=== PATIENT | male | born 1985 | race Caucasian/White ===

== ENCOUNTER 2017-11-29 13:35 | Emergency (ER) | payer MEDICAID ==
[2017-11-29] MEDS ORDERED: ceFAZolin 1 GM Vial IM ONE (15:05)
[2017-11-29] MEDS ORDERED: traMADol 50 MG Tab ONE (15:09)
[2017-11-29] MEDS ORDERED: traMADol 50 MG Tab PO ONE (15:09)
--- NOTE | 2017-11-29 15:09 | EDM.PDOC ---
ED HPI GENERAL MEDICAL PROBLEM - General Chief Complaint: Lower Extremity Injury/Pain Stated Complaint: AMB Time Seen by Provider: 11/29/17 13:48 Source of Information: Reports: Patient History Limitations: Reports: No Limitations - History of Present Illness INITIAL COMMENTS - FREE TEXT/NARRATIVE: History of present illness: []Patient slipped on water in the shelter and fell forward landing on his right knee. His head and was knocked unconscious. He has not had any vomiting, headache, change in vision or seizures. He was brought in by ambulance awake and alert with his right knee flexed fully. Patient states he may have felt his knee pop. He states he had some numbness and tingling in his lower extremity briefly but it came right back. He denies any numbness or pain is calf or foot at this time. Review of systems: As per history of present illness and below otherwise all systems reviewed and negative. Past medical history: As per history of present illness and as reviewed below otherwise noncontributory. Surgical history: As per history of present illness and as reviewed below otherwise noncontributory. Social history: No reported history of drug or alcohol abuse. Family history: As per history of present illness and as reviewed below otherwise noncontributory. Physical exam: General: Well developed, thin and cachectic in no apparent distress HEENT: Atraumatic, no masses or normocephalic, pupils reactive, negative for conjunctival pallor or scleral icterus, mucous membranes moist, throat clear, neck supple, nontender, step-offs or deformities trachea midline. Lungs: Clear to auscultation, breath sounds equal bilaterally, chest nontender. Heart: S1S2, regular, negative for clicks, rubs, or JVD. Abdomen: Soft, nondistended, nontender. Negative for masses or hepatosplenomegaly. Negative for costovertebral tenderness. Pelvis: Stable nontender. Genitourinary: Deferred. Rectal: Deferred. Extremities: Right knee with abrasion over patella tenderness and obvious deformity of patella, negative for cords or calf pain. Neurovascular unremarkable. Dorsalis pedis is palpable patient moves toes and has sensation in his feet. Neuro: Awake, alert, oriented. Cranial nerves II through XII unremarkable. Cerebellum unremarkable. Motor and sensory unremarkable throughout. Exam nonfocal. Diagnostics: []CT head and neck are negative for fracture, right arterial lower extremity ultrasound negative with normal ABIs of 1.0 Knee film shows transverse fracture through patella with distraction of the dominant portion approximately 15 mm no other fractures or dislocation noted. Therapeutics: []Tramadol for pain Ancef IM given Impression: []Patellar fracture, head contusion Plan: []Knee immobilizer, tramadol for pain, Keflex as directed follow-up with Dr. Lind after December 07 when she returns. Call for appointment Definitive disposition and diagnosis as appropriate pending reevaluation and review of above. right knee Pain Score (Numeric/FACES): 9 neck Pain Score (Numeric/FACES): 7 - Related Data Allergies Allergy/AdvReac Type Severity Reaction Status Date / Time amoxicillin Allergy Cannot Verified 11/29/17 13:39 Remember Home Meds: Home Meds Cephalexin [Keflex] 500 mg PO Q8H #21 cap 11/29/17 [Rx] traMADol HCl [Tramadol HCl] 50 mg PO Q6H PRN #16 tablet 11/29/17 [Rx] Past Medical History - Past Health History Medical/Surgical History: Denies Medical/Surgical History Social & Family History - Family History Family Medical History: Noncontributory - Tobacco Use Smoking Status *Q: Current Every Day Smoker Years of Tobacco use: 24 Packs/Tins Daily: 1 - Caffeine Use Caffeine Use: Reports: None - Recreational Drug Use Recreational Drug Use: No Review of Systems - Review of Systems Review Of Systems: See Below (We) ED EXAM, GENERAL - Physical Exam Exam: See Below (See history of present illness) Course - Vital Signs Last Recorded V/S: Last Vital Signs Temp 97.8 F 11/29/17 13:39 Pulse 83 11/29/17 13:39 Resp 16 11/29/17 13:39 BP 128/79 11/29/17 13:39 Pulse Ox 98 11/29/17 13:39 - Orders/Labs/Meds Orders: Active Orders 24 hr Category Date Time Status Splinting [RC] ASDIRECTED Care 11/29/17 15:08 Active Art Duplex Lwr Ext Comp [US] Stat Exams 11/29/17 13:44 Taken CV Ankle Brachial Index (RUTHIE) [US] Stat Exams 11/29/17 13:43 Taken Cervical Spine wo Cont [CT] Stat Exams 11/29/17 13:42 Taken Head wo Cont [CT] Stat Exams 11/29/17 13:42 Taken Knee 3V Rt [CR] Stat Exams 11/29/17 14:21 Taken Meds: Medications Discontinued Medications Generic Name Dose Route Start Last Admin Trade Name Demetria PRN Reason Stop Dose Admin Cefazolin Sodium 1 gm 11/29/17 15:05 Ancef IM 11/29/17 15:06 ONETIME ONE Lidocaine HCl 2.1 ml 11/29/17 15:10 Xylocaine 1% INJECT 11/29/17 15:11 ONETIME ONE Tramadol HCl 50 mg 11/29/17 15:09 Ultram PO 11/29/17 15:10 ONETIME ONE Tramadol HCl Confirm 11/29/17 15:09 Ultram Administered 11/29/17 15:10 Dose 50 mg .ROUTE .STK-MED ONE - Re-Assessments/Exams Free Text/Narrative Re-Assessment/Exam: Called Dr. Jass Daly discussed this fracture with him he stated in the immobilizer and follow-up within 2 weeks is reasonable. 11/29/17 15:31 Departure - Departure Time of Disposition: 15:28 Disposition: DC/Tfer to Court of Law En 21 Condition: Good Clinical Impression: Head contusion Patellar fracture Qualifiers: Encounter type: initial encounter Fracture type: closed Fracture morphology: transverse Fracture alignment: displaced Laterality: right Qualified Code(s): S82.031A - Displaced transverse fracture of right patella, initial encounter for closed fracture - Discharge Information Prescriptions: Cephalexin [Keflex] 500 mg PO Q8H #21 cap traMADol HCl [Tramadol HCl] 50 mg PO Q6H PRN #16 tablet PRN Reason: Pain Referrals: PCP,None [Primary Care Provider] - Marci Lind MD [Physician] - 2 Weeks (Follow-up with Dr. Lind after December 07 for appointment) Forms: ED Department Discharge Additional Instructions: The following information is given to patients seen in the emergency department who are being discharged to home. This information is to outline your options for follow-up care. We provide all patients seen in our emergency department with a follow-up referral. The need for follow-up, as well as the timing and circumstances, are variable depending upon the specifics of your emergency department visit. If you don't have a primary care physician on staff, we will provide you with a referral. We always advise you to contact your personal physician following an emergency department visit to inform them of the circumstance of the visit and for follow-up with them and/or the need for any referrals to a consulting specialist. The emergency department will also refer you to a specialist when appropriate. This referral assures that you have the opportunity for follow-up care with a specialist. All of these measure are taken in an effort to provide you with optimal care, which includes your follow-up. Under all circumstances we always encourage you to contact your private physician who remains a resource for coordinating your care. When calling for follow-up care, please make the office aware that this follow-up is from your recent emergency room visit. If for any reason you are refused follow-up, please contact the [facility] Emergency Department at and asked to speak to the emergency department charge nurse. Keflex and tramadol as directed, ice to knee below, where immobilizer all times when ambulating Follow-up with Dr. Lind December 07 ointment. - My Orders Last 24 Hours: My Active Orders 11/29/17 13:42 Cervical Spine wo Cont [CT] Stat Head wo Cont [CT] Stat 11/29/17 13:43 CV Ankle Brachial Index (RUTHIE) [US] Stat 11/29/17 13:44 Art Duplex Lwr Ext Comp [US] Stat 11/29/17 14:21 Knee 3V Rt [CR] Stat 11/29/17 15:08 Splinting [RC] ASDIRECTED - Assessment/Plan Last 24 Hours: My Active Orders 11/29/17 13:42 Cervical Spine wo Cont [CT] Stat Head wo Cont [CT] Stat 11/29/17 13:43 CV Ankle Brachial Index (RUTHIE) [US] Stat 11/29/17 13:44 Art Duplex Lwr Ext Comp [US] Stat 11/29/17 14:21 Knee 3V Rt [CR] Stat 11/29/17 15:08 Splinting [RC] ASDIRECTED
[2017-11-29] MEDS ORDERED: Lidocaine 1% 20 ML MDV INJECT ONE (15:10)
--- NOTE | 2017-11-30 15:53 | CT ---
EXAM DATE: 11/29/17 PATIENT'S AGE: 32 Patient: SVETLANA NOYOLA Facility: [place], [place] Site . Site : 1985 Study: CT Head WO CONT [id number]/11/2018 2:09:39 PM Ordering Physician: Doctor Stacy Final Report: INDICATION: Patient fell and hit head and neck. Pain. TECHNIQUE: CT head without IV contrast. FINDINGS: Polyp or retention cysts in the right maxillary sinus. Moderate nasal septal deviation. No intracranial hemorrhage, edema, or mass effect. Mild diffuse cerebral atrophy. Remainder negative. IMPRESSION: No acute intracranial disease. Non acute findings as described above. Please note that all CT scans at this facility use dose modulation, iterative reconstruction, and/or weight-based dosing when appropriate to reduce radiation dose to as low as reasonably achievable. Dictated by Jossue Shea MD @ Nov 29 2017 2:38PM (Electronic Signature) Report Signed by Proxy. CHRISTA
--- NOTE | 2017-11-30 15:54 | CT ---
EXAM DATE: 11/29/17 PATIENT'S AGE: 32 Patient: SVETLANA NOYOLA Facility: [place], [place] Site . Site : 1985 Study: CT Spine Cervical WO CONT [id number]/11/2018 2:11:53 PM Ordering Physician: Doctor Stacy Final Report: INDICATION: Patient fell and hit head and neck today. Pain. TECHNIQUE: CT cervical spine performed without IV contrast including axial, coronal and sagittal images. FINDINGS: Small polyps or retention cysts in the right maxillary sinus. Minimal amount of fluid or mucosal thickening in the left maxillary sinus. No fracture or subluxation and cervical spine. Slight irregularity involving the anterior aspect of the C4 vertebral body should be chronic. Mild fibrotic change in the lung apices. Remainder negative. IMPRESSION: 1. No acute fracture or subluxation in cervical spine. 2. Minimal inflammatory changes in the maxillary sinuses. Please note that all CT scans at this facility use dose modulation, iterative reconstruction, and/or weight-based dosing when appropriate to reduce radiation dose to as low as reasonably achievable. Dictated by Jossue Shea MD @ Nov 29 2017 2:43PM (Electronic Signature) Report Signed by Proxy. CHRISTA
--- NOTE | 2017-11-30 15:56 | US ---
EXAM DATE: 11/29/17 PATIENT'S AGE: 32 Patient: SVETLANA NOYOLA Facility: [place], [place] Site . Site : 1985 Study: US Extremity Bilateral [id number]/11/2018 2:38:18 PM Ordering Physician: Doctor Stacy Final Report: INDICATION: Knee injury. TECHNIQUE: Bilateral lower extremity arterial duplex ultrasound with color Doppler and spectral waveform analysis. COMPARISON: None. FINDINGS: Right leg: No arterial occlusion or significant change in velocities to suggest a hemodynamically significant stenosis. Systolic velocities are within normal limits. Color Doppler and spectral waveform analysis demonstrates triphasic waveforms are demonstrated throughout. RUTHIE of 1.0. Left leg: No arterial occlusion or significant change in velocities to suggest a hemodynamically significant stenosis. Systolic velocities are within normal limits. Color Doppler and spectral waveform analysis demonstrates triphasic waveforms are demonstrated throughout. RUTHIE of 1.0. IMPRESSION: Normal bilateral lower extremity arterial ultrasound and ABIs. Dictated by Lee Gabriel MD @ 11/29/2017 2:58:17 PM Dictated by: Lee Gabriel MD @ 11/29/2017 14:58:31 (Electronic Signature) Report Signed by Proxy. CHRISTA
--- NOTE | 2017-11-30 15:57 | US ---
EXAM DATE: 11/29/17 PATIENT'S AGE: 32 Patient: SVETLANA NOYOLA Facility: [place], [place] Site . Site : 1985 Study: US Extremity Bilateral [id number]/11/2018 2:38:18 PM Ordering Physician: Doctor Stacy Final Report: INDICATION: Knee injury. TECHNIQUE: Bilateral lower extremity arterial duplex ultrasound with color Doppler and spectral waveform analysis. COMPARISON: None. FINDINGS: Right leg: No arterial occlusion or significant change in velocities to suggest a hemodynamically significant stenosis. Systolic velocities are within normal limits. Color Doppler and spectral waveform analysis demonstrates triphasic waveforms are demonstrated throughout. RUTHIE of 1.0. Left leg: No arterial occlusion or significant change in velocities to suggest a hemodynamically significant stenosis. Systolic velocities are within normal limits. Color Doppler and spectral waveform analysis demonstrates triphasic waveforms are demonstrated throughout. RUTHIE of 1.0. IMPRESSION: Normal bilateral lower extremity arterial ultrasound and ABIs. Dictated by Lee Gabriel MD @ 11/29/2017 2:58:17 PM Dictated by: Lee Gabriel MD @ 11/29/2017 14:58:31 (Electronic Signature) Report Signed by Proxy. CHRISTA
--- NOTE | 2017-11-30 15:59 | CR ---
EXAM DATE: 11/29/17 PATIENT'S AGE: 32 Patient: SVETLANA NOYOLA Facility: [place], [place] Site . Site : 1985 Study: XRay Knee Right [id number]/11/2018 2:39:46 PM Ordering Physician: Edwin Suárez Final Report: HISTORY: Knee pain. FINDINGS: Three views of the right knee are provided. There is a comminuted transverse, side to side fracture through the central portion of the patella with distraction of the dominant proximal and distal fragments by approximately 15 mm. No findings for long bone fracture or dislocation. No arthritic changes are noted. Dictated by Abel Krishnamurthy MD @ Nov 29 2017 2:50PM (Electronic Signature) Report Signed by Proxy. CHRISTA
== END 2017-11-29 16:10 ==
LOC: MW.ED 13:35
DX: S82.031A Displaced transverse fracture of right patella, initial encounter for closed fracture (principal); S00.93XA Contusion of unspecified part of head, initial encounter; F17.210 Nicotine dependence, cigarettes, uncomplicated; Z88.1 Allergy status to other antibiotic agents; W01.0XXA Fall on same level from slipping, tripping and stumbling without subsequent striking against object, initial encounter; Y92.149 Unspecified place in prison as the place of occurrence of the external cause
CPT/HCPCS: 70450; 72125; 73562; 93922; 93925; 96372; 99284; A9270; J0690

== ENCOUNTER 2017-12-05 21:12 | Emergency (ER) | payer MEDICAID, OTHER ==
--- NOTE | 2017-12-05 21:30 | EDM.PDOC ---
ED HPI GENERAL MEDICAL PROBLEM - General Chief Complaint: Lower Extremity Injury/Pain Stated Complaint: RIGHT FOOT SWELLING AND PAIN Time Seen by Provider: 12/05/17 21:14 Source of Information: Reports: Patient History Limitations: Reports: No Limitations - History of Present Illness INITIAL COMMENTS - FREE TEXT/NARRATIVE: HISTORY AND PHYSICAL: History of present illness: Patient is a 32-year-old male who is brought to the emergency room via law enforcement, currently in their custody. Patient states he fell and fractured his patella this last Thursday, while he was running and slipped on some water , landing on his knee. He does have crutches and a knee immobilizer in place. The Officer states that the patient has surgery scheduled for next week in [place]. Patient is here today as he states there is increased swelling and bruising to his foot/ankle. "I didn't have any swelling or bruising until now". He is concerned that when he slipped and fell he may have fractured or injured the foot but hadn't notice due to the amount of pain he was having to his knee. He denies any numbness or tingling to the distal extremity. Cap refill less than 3 seconds. Review of systems: As per history of present illness and below otherwise all systems reviewed and negative. Past medical history: As per history of present illness and as reviewed below otherwise noncontributory. Surgical history: As per history of present illness and as reviewed below otherwise noncontributory. Social history: No reported history of drug or alcohol abuse. Family history: As per history of present illness and as reviewed below otherwise noncontributory. Physical exam: General: Nontoxic-appearing 32-year-old male. Alert and oriented. Appears in no acute distress. HEENT: Atraumatic, normocephalic, pupils reactive, negative for conjunctival pallor or scleral icterus, mucous membranes moist, throat clear, neck supple, nontender, trachea midline. Lungs: Clear to auscultation, breath sounds equal bilaterally, chest nontender. Heart: S1S2, regular, negative for clicks, rubs, or JVD. Abdomen: Soft, nondistended, nontender. Negative for masses or hepatosplenomegaly. Negative for costovertebral tenderness. Pelvis: Stable nontender. Genitourinary: Deferred. Rectal: Deferred. Extremities: Bruising and soft tissue swelling noted to the right patella. He does have a fracture, noted from previous visit. +2 Pitting Edema and extravasation noted to the right foot and ankle area. Does have full range of motion to the ankle with good flexion and extension. He is negative for cords or calf pain. Neurovascular unremarkable. Neuro: Awake, alert, oriented. Cranial nerves II through XII unremarkable. Cerebellum unremarkable. Motor and sensory unremarkable throughout. Exam nonfocal. VSS. Does not appear to have any vascular compromise. Strong Pedal pulse and capillary refill less than 3 seconds. The bruising and swelling appear to be related to the known injury and possibly the patient not keeping his lower extremity elevated enough/frequently. Diagnostics: X-ray right foot Therapeutics: Ice, Elevation Impression: History of right patellar fracture Lower extremity swelling due to fracture Plan: 1. Rest, ice, elevate the affected extremity. Continue to wear your knee immobilizer and use the crutches to be nonweightbearing. 2. Use medications you have available to you as directed. Tylenol and/or ibuprofen for pain management. 3. Keep your orthopedic appointment and follow up as directed. Return to the ED as needed and as discussed. Definitive disposition and diagnosis as appropriate pending reevaluation and review of above. Onset: Today - Related Data Allergies Allergy/AdvReac Type Severity Reaction Status Date / Time amoxicillin Allergy Cannot Verified 12/05/17 21:20 Remember Home Meds: Home Meds Cephalexin [Keflex] 500 mg PO Q8H #21 cap 11/29/17 [Rx] traMADol HCl [Tramadol HCl] 50 mg PO Q6H PRN #16 tablet 11/29/17 [Rx] Past Medical History - Past Health History Medical/Surgical History: Denies Medical/Surgical History Social & Family History - Family History Family Medical History: Noncontributory - Tobacco Use Smoking Status *Q: Current Every Day Smoker Years of Tobacco use: 24 Packs/Tins Daily: 1 - Caffeine Use Caffeine Use: Reports: None - Recreational Drug Use Recreational Drug Use: No Review of Systems - Review of Systems Review Of Systems: ROS reveals no pertinent complaints other than HPI. ED EXAM, GENERAL - Physical Exam Exam: See Below (See dictation) Course - Vital Signs Last Recorded V/S: Last Vital Signs Temp 97.8 F 12/05/17 21:18 Pulse 92 03/17/18 21:18 Resp 12 12/05/17 21:18 BP 112/82 12/05/17 21:18 Pulse Ox 97 12/05/17 21:18 - Orders/Labs/Meds Orders: Active Orders 24 hr Category Date Time Status Foot 2V Rt [CR] Stat Exams 12/05/17 21:14 Taken Departure - Departure Time of Disposition: 21:46 Disposition: Home, Self-Care 01 Clinical Impression: History of patellar fracture, Lower extremity edema - Discharge Information Instructions: Patellar Fracture, Adult Referrals: PCP,None [Primary Care Provider] - Forms: ED Department Discharge Additional Instructions: My general discharge The following information is given to patients seen in the emergency department who are being discharged to home. This information is to outline your options for follow-up care. We provide all patients seen in our emergency department with a follow-up referral. The need for follow-up, as well as the timing and circumstances, are variable depending upon the specifics of your emergency department visit. If you don't have a primary care physician on staff, we will provide you with a referral. We always advise you to contact your personal physician following an emergency department visit to inform them of the circumstance of the visit and for follow-up with them and/or the need for any referrals to a consulting specialist. The emergency department will also refer you to a specialist when appropriate. This referral assures that you have the opportunity for follow-up care with a specialist. All of these measure are taken in an effort to provide you with optimal care, which includes your follow-up. Under all circumstances we always encourage you to contact your private physician who remains a resource for coordinating your care. When calling for follow-up care, please make the office aware that this follow-up is from your recent emergency room visit. If for any reason you are refused follow-up, please contact the [facility] Emergency Department at and asked to speak to the emergency department charge nurse. [facility] Professional [address], [address] [place] [address] 1. Rest, ice, elevate the affected extremity. It's important to elevate the extremity above heart level whenever able. Continue to wear your knee immobilizer and use the crutches to be nonweightbearing. 2. Use medications you have available to you as directed. Tylenol and/or ibuprofen for pain management. 3. Keep your orthopedic appointment and follow up as directed. Return to the ED as needed and as discussed. - My Orders Last 24 Hours: My Active Orders 12/05/17 21:14 Foot 2V Rt [CR] Stat - Assessment/Plan Last 24 Hours: My Active Orders 12/05/17 21:14 Foot 2V Rt [CR] Stat
--- NOTE | 2017-12-07 16:17 | CR ---
EXAM DATE: 12/05/17 PATIENT'S AGE: 32 Patient: SVETLANA NOYOLA Facility: [place], [place] Site . Site : 1985 Study: XRay Extremity Right foot [id number]/17/2018 9:36:17 PM Ordering Physician: Doctor Stacy Final Report: INDICATION: Pain right foot. TECHNIQUE: Portable two-view study right foot. FINDINGS: Diffuse soft tissue swelling overlying the dorsum of the right foot. No evidence of fracture or dislocation. Impression: No evidence of fracture. 1. Diffuse soft tissue swelling dorsum right foot. Dictated by Steve Francois MD @ Dec 05 2017 9:40PM (Electronic Signature) Report Signed by Proxy. CHRISTA
== END 2017-12-05 22:00 | disposition home or self-care (01) ==
LOC: MW.ED 21:12
DX: S82.031A Displaced transverse fracture of right patella, initial encounter for closed fracture (principal); Y92.149 Unspecified place in prison as the place of occurrence of the external cause; W01.0XXA Fall on same level from slipping, tripping and stumbling without subsequent striking against object, initial encounter
CPT/HCPCS: 73620-26-RT; 73620-RT; 99283